=== PATIENT | female | born 1955 | race Caucasian/White ===

== ENCOUNTER 2016-05-10 08:00 | Outpatient (CLI) | payer BC, OTHER | END 2016-05-10 08:01 | disposition home or self-care (01) | DX: Z79.899 Other long term (current) drug therapy (principal) ==

== ENCOUNTER 2016-05-25 09:45 | Outpatient (CLI) | payer BC, OTHER | END 2016-05-25 09:46 | disposition home or self-care (01) | DX: Z12.31 Encounter for screening mammogram for malignant neoplasm of breast (principal) ==